=== PATIENT | female | born 1970 | race American Indian/Alaskan Native ===

== ENCOUNTER 2016-08-12 08:50 | Outpatient (CLI) | payer OTHER ==
--- NOTE | 2016-08-12 10:31 | Mammography Report ---
RIGHT DIGITAL DIAGNOSTIC MAMMOGRAM: 08/12/16 08:50:00 CLINICAL: For clip placement immediately status post ultrasound biopsy. COMPARISON:07/08/16 FINDINGS: A biopsy clip is now identified the margin of the low density upper inner mass. IMPRESSION: Concordant clip placement status post ultrasound biopsy. BI-RADS CATEGORY: 4--Suspicious Pathology pending.
--- NOTE | 2016-08-12 10:53 | Ultrasound Report ---
VACUUM ASSISTED ULTRASOUND GUIDED NEEDLE CORE BIOPSY WITH CLIP PLACEMENT RIGHT BREAST : 08/12/16 08:50:00 CLINICAL: Mass at 12 o'clock 6 cm from the nipple. COMPARISON :07/29/16 FINDINGS: The procedure was explained to the patient and informed consent was obtained. Ultrasound demonstrated the previously described mass at 12 o'clock. The skin was prepped with Betadine and anesthetized with 1% lidocaine. Vacuum-assisted needle core biopsy was performed through a small dermatotomy using ultrasound guidance, 2% lidocaine with epinephrine for deep anesthesia and a 13-gauge Elite biopsy probe. Imaging demonstrated satisfactory sampling. Multiple cores were obtained and placed in formalin. An 11-gauge Mammostar barbell shape clip was then placed within the lesion. Hemostasis was achieved with minimal pressure and a sterile dressing was applied. The patient tolerated the procedure well and there were no apparent complications. A two view mammogram demonstrated concordant clip placement. The patient left the department in good condition and was given instructions for wound care and follow up. IMPRESSION: Uncomplicated vacuum-assisted ultrasound core biopsy and clip placement right breast.
== END 2016-08-12 08:51 | disposition home or self-care (01) ==
LOC: SPVWC 08:50
PROVIDERS: ATTEND Family Medicine Adult Medicine
DX: N63 Unspecified lump in breast (principal)
CPT/HCPCS: 19083; 88305; A4648; G0206